=== PATIENT | female | born 1945 | race African-American/Black ===

== ENCOUNTER 2021-11-19 10:26 | Outpatient (CLI) | payer MEDICARE | END 2021-11-19 10:27 | disposition home or self-care (01) | LOC: CSHMAMMO 10:26 | PROVIDERS: ATTEND Internal Medicine | DX: Z12.31 Encounter for screening mammogram for malignant neoplasm of breast (principal) | CPT/HCPCS: 77063; 77067 ==

== ENCOUNTER 2022-05-31 14:23 | Outpatient (CLI) | payer MEDICARE | END 2022-05-31 14:24 | disposition home or self-care (01) | LOC: CSHULT 14:23 | PROVIDERS: ATTEND Internal Medicine | DX: N18.4 Chronic kidney disease, stage 4 (severe) (principal); N28.1 Cyst of kidney, acquired | CPT/HCPCS: 76770 ==

== ENCOUNTER 2023-05-26 11:57 | Outpatient (CLI) | payer MEDICARE | END 2023-05-26 11:58 | disposition home or self-care (01) | LOC: CSHRAD 11:57 | PROVIDERS: ATTEND Internal Medicine | DX: M25.561 Pain in right knee (principal); M17.11 Unilateral primary osteoarthritis, right knee ==

== ENCOUNTER 2024-02-20 10:52 | Outpatient (CLI) | payer MEDICARE | END 2024-02-20 10:53 | disposition home or self-care (01) | LOC: CSHMAMMO 10:52 | PROVIDERS: ATTEND Internal Medicine | DX: Z12.31 Encounter for screening mammogram for malignant neoplasm of breast (principal) | CPT/HCPCS: 77063; 77067 ==

== ENCOUNTER 2024-11-02 06:00 | Day surgery (SDC) | payer MEDICARE ==
[2024-11-01 15:07] VITALS: BMI 32.5
[2024-11-02 07:27] LABS: Hematocrit 34.3 % (34.9-44.5); Hemoglobin 11.1 g/dL (12.0-15.5)
[2024-11-02 07:46] LABS: Anion Gap 13 mmol/L (10-20); BUN (Urea Nitrogen) 24 mg/dL (9.8-20.1); Calc. Creatinine Clearance 39 mL/min (70-130); Calcium 9.9 mg/dL (7.8-10.44); Carbon Dioxide 24 mmol/L (23-31); Chloride 108 mmol/L (98-107); Glucose 123 mg/dL (83-110); Potassium 4.0 mmol/L (3.5-5.1); Sodium 141 mmol/L (136-145)
[2024-11-02] MEDS ORDERED: SUGAMMADEX SODIUM 200 MG/2 ML VIAL ONE (08:54)
[2024-11-02] MEDS ORDERED: Ondansetron PF 4 MG/2 ML Vial ONE (08:54)
[2024-11-02] MEDS ORDERED: Rocuronium Bromide 10 MG/ML (10ML VIAL) ONE (08:54)
[2024-11-02] MEDS ORDERED: PROPOFOL 20 ML ONE (08:54)
[2024-11-02] MEDS ORDERED: Lidocaine 1% PF 5 ML VIAL ONE (08:55)
== END 2024-11-02 12:00 | disposition home or self-care (01) ==
LOC: CSHSDC 06:00
PROVIDERS: ATTEND Otolaryngology Plastic Surgery within the Head & Neck
PROC: 0GBM0ZZ Excision of Left Superior Parathyroid Gland, Open Approach (ICD-10-PCS; principal; 2024-11-02)
DX: E21.0 Primary hyperparathyroidism (principal); E11.22 Type 2 diabetes mellitus with diabetic chronic kidney disease; E78.5 Hyperlipidemia, unspecified; E66.9 Obesity, unspecified; I25.10 Atherosclerotic heart disease of native coronary artery without angina pectoris; I12.9 Hypertensive chronic kidney disease with stage 1 through stage 4 chronic kidney disease, or unspecified chronic kidney disease; N18.30 Chronic kidney disease, stage 3 unspecified; G47.33 Obstructive sleep apnea (adult) (pediatric); Z68.32 Body mass index [BMI] 32.0-32.9, adult; Z79.84 Long term (current) use of oral hypoglycemic drugs; Z79.82 Long term (current) use of aspirin; Z79.899 Other long term (current) drug therapy
CPT/HCPCS: 60500; 80048; 83970; 85014; 85018; 93005; J1100; J2405; J2704; J3010; 88305; 88331; 93010

== ENCOUNTER 2025-02-22 11:34 | Outpatient (CLI) | payer MEDICARE | END 2025-02-22 11:35 | disposition home or self-care (01) | LOC: CSHMAMMO 11:34 | PROVIDERS: ATTEND Internal Medicine | DX: Z12.31 Encounter for screening mammogram for malignant neoplasm of breast (principal); Z80.3 Family history of malignant neoplasm of breast | CPT/HCPCS: 77063; 77067 ==